=== PATIENT | female | born 1980 ===

== ENCOUNTER → 2021-12-04 | Outpatient (CLI) | payer SELFPAY ==
[~2021-12-04] VITALS: Ht 157 cm; Wt 75.0 kg
[~2021-12-04] MED LIST: LIDOCAINE 1% INJ 20 ML VIAL INJ ONE; LIDOCAINE 1% INJ 50 ML (XYLOCAINE) VIAL ONE
--- NOTE | 2021-12-04 14:09 | Diagnostic Imaging Report ---
INDICATION: Left breast mass. Patient presents for ultrasound-guided biopsy. Patient brought to the ultrasound suite placed on table in the supine position. Ultrasound imaging of the left breast was performed to evaluate appropriate entry site. Left breast was then prepped and draped in the usual sterile fashion. Small amount 1% lidocaine was utilized for local anesthesia. A total of 4 core biopsies were obtained of the hypoechoic mass at the 4 o'clock location of the left breast, 4 cm from the nipple utilizing a 14-gauge Achieve needle. A marker clip was then deployed. Hemostasis was obtained using manual compression. Patient tolerated procedure well and was sent for postprocedure mammogram in satisfactory condition. IMPRESSION: Successful ultrasound-guided core biopsy of the hypoechoic solid appearing mass at the 4 o'clock location of the left breast, 4 cm from the nipple. Pathology results are currently pending. Dictated by: Dictated on workstation # [id number]
--- NOTE | 2021-12-04 16:34 | Diagnostic Imaging Report ---
INDICATION: Left breast biopsy. Unilateral left 2D, CC and ML mammography was performed after patient underwent ultrasound-guided left breast biopsy. There is a marker clip in the lower and outer aspect of the left breast, mid depth corresponding to the site of the patient's biopsy. IMPRESSION: Marker clip placement, as described. Dictated by: Dictated on workstation # [id number]
== END ==
LOC: RAD 12:28
PROVIDERS: ATTEND Nurse Practitioner Family
DX: N63.23 Unspecified lump in the left breast, lower outer quadrant (principal)
CPT/HCPCS: 19083; 77065; G0279